=== PATIENT | female | born 1940 | race Caucasian/White ===

== ENCOUNTER → 2016-08-06 | Outpatient (CLI) | payer OTHER ==
[~2016-08-06] MED LIST: IOPAMIDOL (ISOVUE 370) 100 ML BTL IV ONE
[2016-08-06 11:22] LABS: CREATININE 0.9 mg/dL (0.6-1.0); GLOMERULAR FILTRATION RATE > 60
--- NOTE | 2016-08-06 18:55 | CT ---
CT Angiogram Neck History: Left neck pain and swelling, recent cervical injection. History of TIA. Comparison: CT angio head neck September 29, 2014. Technique: Axial contrast-enhanced images were obtained from the skull base through the thoracic inle t following the uneventful intravenous administration of 85 mL Isovue-370. Multiplanar reformations were performed. Creatinine is 0.9. Dose reduction techniques were utilized. Findings: The visualized aorta is upper normal in caliber with mild atherosclerosis, without dissecti on. Bovine arch configuration is noted. The left vertebral artery arises directly from the aorta, a n ormal variant. Mild atherosclerosis is present at the carotid bifurcations without significant stenos es. The proximal left internal carotid artery is tortuous. The distal right internal carotid artery i s tortuous. The vertebral arteries are widely patent. There is no visible dissection or aneurysm. The re are no hematomas or soft tissue masses. Mild atherosclerosis is present in the distal internal car otid arteries with stable appearance of the intracranial vasculature. Moderate degenerative change fr om C5 through C7 and trace anterolisthesis of C2 on C3 and C4 on C5 and C5 on C6 is stable. An indist inct 4 mm noncalcified nodule in the right upper lobe (series 5 image 22) is unchanged. Impression: 1. No visible etiology for the patient's neck pain and swelling. 2. Stable vascular findings above. 3. Additional findings as above. Stenoses are calculated using [place] Symptomatic Carotid Endarterectomy Trial (NASCET) criter ia.
== END ==
LOC: FIMAGING 10:05
PROVIDERS: ATTEND Physical Medicine & Rehabilitation
DX: M50.322 Other cervical disc degeneration at C5-C6 level (principal); M50.323 Other cervical disc degeneration at C6-C7 level; R91.1 Solitary pulmonary nodule; M54.2 Cervicalgia; R22.1 Localized swelling, mass and lump, neck
CPT/HCPCS: 70498; Q9967

== ENCOUNTER → 2017-09-02 | Outpatient (CLI) | payer OTHER | LOC: FIMAGING 12:56 | PROVIDERS: ATTEND Family Medicine | DX: Z13.820 Encounter for screening for osteoporosis (principal); M85.89 Other specified disorders of bone density and structure, multiple sites ==

== ENCOUNTER → 2018-08-15 | Outpatient (CLI) | payer OTHER | LOC: CIMAGING 10:29 | PROVIDERS: ATTEND Family Medicine | DX: Z12.31 Encounter for screening mammogram for malignant neoplasm of breast (principal) ==